=== PATIENT | male | born 1940 | race Caucasian/White ===

== ENCOUNTER 2019-12-08 17:13 | Emergency (ER) | payer MEDICARE, BC ==
[~2019-12-08] VITALS: Ht 177.8 cm; Wt 59.1 kg
[2019-12-08 17:15] VITALS: BP 126/66
--- NOTE | 2019-12-08 18:06 | NUR ---
states they were going to [facility] and left prior to charge nurse intervention
== END 2019-12-08 18:08 | disposition left against medical advice (07) ==
LOC: ER 17:14
DX: K62.89 Other specified diseases of anus and rectum (principal); Z53.21 Procedure and treatment not carried out due to patient leaving prior to being seen by health care provider